=== PATIENT | female | born 1985 | race Caucasian/White ===

== ENCOUNTER 2023-05-13 16:13 | Emergency (ER) | payer MEDICAID ==
[~2023-05-13] VITALS: Ht 172.7 cm; Wt 72.7 kg
[~2023-05-13 16:13] MED LIST: ACYC-129 PO; CALCIUM PO; FERR-119 PO; GABA-532 PO; HYDR-4353 PO; MULT-342 PO; ONDA8TAB6 PO; OXYCODONE PO; PROC-8 PO; VITAMIN B12 PO
[2023-05-13 16:25] VITALS: BP 153/103; PULSE 52; TEMP 98.1; O2SAT 97
[2023-05-13 17:05] LABS: HEMOGLOBIN 12.6 g/dl (12.0-16.0); MEAN PLATELET VOLUME 8.4 FL (7.4-10.4); RED CELL DISTRIBUTION WIDTH 16.9 % (11.5-14.5)
[2023-05-13 17:07] LABS: BASOPHILS # (AUTO) 0.1 X10'3 (0-0.2); BASOPHILS % (AUTO) 0.4 % (0-1); EOSINOPHILS # (AUTO) 0.1 X10'3 (0-0.9); EOSINOPHILS % (AUTO) 0.5 % (0-6); HEMATOCRIT 38.7 % (35.0-45.0); LYMPHOCYTES # (AUTO) 2.4 X10'3 (1.1-4.8); LYMPHOCYTES % (AUTO) 17.8 % (21-51); MEAN CORPUSCULAR HEMOGLOBIN 26.8 PG (27.0-31.0); MEAN CORPUSCULAR HGB CONC 32.7 g/dL (33.0-36.5); MONOCYTES # (AUTO) 1.1 X10'3 (0-0.9); MONOCYTES % (AUTO) 8.2 % (2-12); NEUTROPHILS # (AUTO) 9.8 X10'3 (1.8-7.7); NEUTROPHILS % (AUTO) 73.1 % (42-75); PLATELET COUNT 299 X10'3 (140-440); RED BLOOD COUNT 4.72 X10'6 (4.20-5.60); WHITE BLOOD COUNT 13.4 X10'3 (4.5-11.0)
[2023-05-13 17:09] LABS: URINE HCG NEGATIVE (NEG)
[2023-05-13 17:10] LABS: ALANINE AMINOTRANSFERASE 30 U/L (12-78); ALBUMIN 3.5 G/DL (3.4-5.0); ALBUMIN/GLOBULIN RATIO 1.1 (1.1-1.5); ALKALINE PHOSPHATASE 72 IU/L (46-116); ANION GAP 9 (8-16); ASPARTATE AMINO TRANSFERASE 16 U/L (10-37); BILIRUBIN,TOTAL 0.6 MG/DL (0.1-1.0); BLOOD UREA NITROGEN 6 MG/DL (7-18); BUN/CREATININE RATIO 8.8 (10.0-20.0); CALCIUM 8.9 MG/DL (8.5-10.1); CHLORIDE 105 MMOL/L (99-107); CREATININE 0.68 MG/DL (0.40-0.90); GLUCOSE 87 MG/DL (70-104); POTASSIUM 3.7 MMOL/L (3.5-5.1); SODIUM 140 MMOL/L (135-145); TOTAL CARBON DIOXIDE 26.5 MMOL/L (24-32); TOTAL PROTEIN 6.6 G/DL (6.4-8.2); eGFR > 90 ML/MIN
[2023-05-13 17:15] LABS: CLARITY,URINE CLOUDY (Clear); COLOR,URINE YELLOW (Yellow); GLUCOSE, URINE NEGATIVE (Neg); KETONES,URINE NEGATIVE (Neg); LEUKOCYTE ESTERASE ,URINE MODERATE (Neg); NITRITES, URINE NEGATIVE (Neg); OCCULT BLOOD,URINE NEGATIVE (Neg); PROTEIN,URINE NEGATIVE (Neg)
[2023-05-13 17:21] LABS: UA COLLECTION TYPE CLN CATCH MIDSTREAM
[2023-05-13 17:59] LABS: MUCUS STRANDS MANY /LPF (Neg); SQUAMOUS EPITHELIAL CELL,UR MANY /LPF (FEW)
[2023-05-13 18:00] LABS: BACTERIA,URINE 1+ /HPF (Neg); RBC,URINE 0-2 /HPF (0-2)
--- NOTE | 2023-05-13 18:01 | NUR ---
UA REJECTED FOR CULTURE
[2023-05-13 18:55] VITALS: RESP 18
[2023-05-13] MEDS ORDERED: DOXYCYCLINE 100MG CAPSULE PO STA (19:08)
[2023-05-13] MEDS ORDERED: acetaminophen 325mg tablet PO ONE (19:10)
[2023-05-13] MEDS ORDERED: DOXY-1 PO (19:19)
== END 2023-05-13 20:00 | disposition home or self-care (01) ==
LOC: ER 16:15
DX: R06.02 Shortness of breath (principal); L02.416 Cutaneous abscess of left lower limb; K21.9 Gastro-esophageal reflux disease without esophagitis; I10 Essential (primary) hypertension; F17.200 Nicotine dependence, unspecified, uncomplicated; Z88.0 Allergy status to penicillin; Z79.899 Other long term (current) drug therapy
CPT/HCPCS: 10060; 36415; 71045; 80053; 81001; 81025; 83880; 84484; 85025; 93005; 99285

== ENCOUNTER 2025-04-29 09:17 | Emergency (ER) | payer MEDICAID ==
[~2025-04-29] VITALS: Ht 172.7 cm; Wt 66.8 kg
[2025-04-29 09:25] VITALS: TEMP 99
--- NOTE | 2025-04-29 09:52 | Physician Documentation ---
History of Present Illness ~ Chief Complaint: Foot pain Stated Complaint: L FOOT PAIN Time Seen by MD: 09:19 OK to notify your PCP?: Yes Primary Medical Doctor: RENÉE STAFFORD Source: patient Mode of Arrival: POV Exam Limitations: no limitations HPI This is a 39-year-old female who comes in complaining of pain of the left foot and ankle. The patient states that is she tripped over a stump in her yd yesterday twisting the ankle and falling to the ground. She is complaining of pain mostly help with the small toe and states now she is getting some bruising and swelling of the foot and ankle. She is able to bear weight however she states it elicit some tenderness. She is not complaining of pain of the knee or hip. Tetanus witin 5 years: No Medication Reconciliation Allergies: Coded Allergies: Penicillins (Verified Allergy, Severe, 04/11/16) Scheduled Ferrous Sulfate (Iron), 2 TAB PO DAILY, (Reported) Gabapentin (Gabapentin), 3 CAP PO TID, (Reported) Multivitamins (Multi-Day Vitamin), 2 EACH PO DAILY, (Reported) Ondansetron Hcl (Zofran), 8 MG PO 6XD, (Reported) Prochlorperazine Maleate (Compazine), 2 TAB PO Q6H, (Reported) [Calcium], PO DAILY, (Reported) [Vitamin B12], PO DAILY, (Reported) Scheduled PRN Acyclovir* (Zovirax*), 1 TABLET PO 5XD PRN for PRN, (Reported) Hydrocodone Bit/Acetaminophen ([place] 10-325 Tablet), 2 TAB PO Q4HPRN PRN for pain, (Reported) [Oxycodone], 1 TAB PO Q4HPRN PRN for pain, (Reported) Past Medical History Past Medical History: Hypertension, GERD, Leukemia Past Surgical History: abdominal surgery, other Alcohol Use: Occasionally Drug Use: none Lives In: Home Occupation: employed, other Physical Exam Vital Signs: Temperature: 99.0, Source: Temporal, Heart Rate: 107, Respiratory Rate: 18, BP: 125/95, Pulse Oximetry: 100, Weight: 66.750 Pulse Oximetry Reflects: adequate oxygenation General Appearance: alert, WD/WN, no apparent distress Feet To inspection of the foot there is subtle edema and ecchymosis of the left toe. If there has been edema and ecchymosis of the mid foot extending up to the ankle. No gross deformity. No break in the skin. Minimal tenderness with squeezing the midfoot. No tenderness to palpation of the proximal 5th metatarsal. No tenderness to palpation of the calcaneus. The Achilles tendon is intact with normal Gaffney's sign. The left dorsalis pedis pulses 2+ and cap refill less than 2 seconds and brisk in the digits of the left foot Progress Results/Orders Results/Orders Orders - LIONEL ZAYAS Ankle, Complete(3vw Min) (04/29/25 09:29) Foot, Complete (3vw Min) (04/29/25 09:29) Ortho Orders (04/29/25 09:58) Completed Orders - LIONEL ZAYAS Ankle, Complete(3vw Min) (04/29/25 09:29) Foot, Complete (3vw Min) (04/29/25 09:29) Vital Signs 04/29/25 09:25 Temp 99.0 Pulse 107 Resp 18 B/P (MAP) 125/95 Pulse Ox 100 EKG/XRAY/CT/US/VASC/MRI Bone/Soft Tissue X-Ray (Ext.) : Interpreted By: self Additional Comment X-ray of the foot three-view: Subtle nondisplaced intra-articular fracture of the proximal aspect of the proximal phalanx of the 5th toe. Diffuse soft tissue swelling. No dislocation Medical Decision Making Findings The x-rays were interpreted as negative by the radiologist however I am seeing a subtle intra-articular fracture of the proximal base of the proximal phalanx of the small toe which was the area of the initial injury. I had the 4th and 5th toes jerson-taped, Nikita wrap to left ankle, ortho shoe and crutches. I offered the patient pain medication she refused. I instructed her to ice and elevate the ankle frequently to reduce swelling and apply cold compresses for 20 minutes every 2 hours for the 1st few days. Follow up with the primary care physician for recheck in the coming week and return to the ER for any worsening or concerning symptoms Additional Comment Left foot contusion. Left foot fracture. Left small toe contusion. Left small toe fracture. Left ankle sprain strain. Doubt ankle fracture Departure Disposition: 01 HOME / SELF CARE / HOMELESS Impression: Primary Impression: Fracture of fifth toe, left, closed Additional Impression: Left ankle sprain Condition: Stable Discharge Instructions: Toe Fracture Additional Instructions: Jerson tape the 4th and 5th toes together for comfort, use the Nikita wrap, ortho shoe and crutches as needed. Remember to elevate the foot over the level of the heart as much as possible and apply cold compresses for 20 minutes every 2 hours for the 1st three days. Take ibuprofen or Tylenol for discomfort. Follow up with your primary care physician for recheck in the next couple of days and return to the ER for any worsening or concerning symptoms Referrals: NO PRIMARY CARE PROVIDER (PCP) Signature Scribe Signature: No scribe Attestation: The note accurately reflects work and decisions made by me.Lionel LAU 04/29/25 10:06 LIONEL ZAYAS Apr 29, 2025 09:52
--- NOTE | 2025-04-29 10:00 | RADIOLOGY REPORT ---
CLINICAL INDICATION: ANKLE PAIN TECHNIQUE: 3 radiographic views of the left ankle were obtained. Comparison: None FINDINGS/IMPRESSION: There is no evidence of acute fracture or dislocation. The visualized joint space is well maintained. Soft tissue swelling about the left ankle The alignment is anatomical. There is no radiopaque foreign body.
--- NOTE | 2025-04-29 10:00 | RADIOLOGY REPORT ---
EXAM: DI FOOT, COMPLETE (3VW MIN) left HISTORY: FOOT PAIN COMPARISON: None TECHNIQUE: DI FOOT, COMPLETE (3VW MIN) left FINDINGS: BONES: No acute fracture or dislocation is seen. No significant degenerative changes. SOFT TISSUES: Diffuse soft tissue edema IMPRESSION: 1. No acute fracture or dislocations. 2. Diffuse soft tissue edema.
[2025-04-29 10:15] VITALS: BP 122/65; PULSE 88; RESP 16; O2SAT 99
== END 2025-04-29 10:10 | disposition home or self-care (01) ==
LOC: ER 09:18
DX: S92.502A Displaced unspecified fracture of left lesser toe(s), initial encounter for closed fracture (principal); S93.402A Sprain of unspecified ligament of left ankle, initial encounter; I10 Essential (primary) hypertension; Z88.0 Allergy status to penicillin; W01.0XXA Fall on same level from slipping, tripping and stumbling without subsequent striking against object, initial encounter; Y93.89 Activity, other specified; Y92.89 Other specified places as the place of occurrence of the external cause; Y99.8 Other external cause status
CPT/HCPCS: 73610; 73630; 99284; L3260; A6449